=== PATIENT | female | born 1985 | race Caucasian/White ===

== ENCOUNTER 2025-05-05 10:35 | Day surgery (SDC) | payer OTHER, MEDICAID ==
[2025-05-05] MEDS ORDERED: hydrALAZINE 20 MG/ML VIAL SLOW IVP PRN (11:18)
[2025-05-05 11:21] VITALS: BMI 23.0
[2025-05-05 12:03] LABS: #Basophils 0.08 10x3/uL (0.0-0.2); #Eosinophils 0.18 10x3/uL (0.0-0.5); #Monocytes 0.97 10x3/uL (0.0-1.1); #Neutrophils 8.34 10x3/uL (1.5-8.4); %Basophils 0.7 % (0.0-2.0); %Eosinophils 1.6 % (0.0-6.0); %Lymphocytes 12.9 % (18.0-47.0); %Monocytes 8.6 % (0.0-10.0); %Neutrophils 73.8 % (40.0-75.0); Hematocrit 34.0 % (34.9-44.5); Hemoglobin 11.8 g/dL (12.0-15.5); Mean Corpuscular Hemoglobin 30.3 pg (27.0-33.0); Mean Corpuscular Volume 87.2 fL (81.6-98.3); Platelet Count 400 10x3/uL (150-450); Red Blood Cell (RBC) Count 3.90 10x6/uL (3.90-5.03); White Blood Cell (WBC) Count 11.30 10x3/uL (3.5-10.5)
[2025-05-05 12:47] LABS: ALT (SGPT) 12 U/L (Less than 34); AST (SGOT) 23 U/L (11-34); Albumin 3.3 g/dL (3.1-4.5); Alkaline Phosphatase 89 U/L (40-110); Anion Gap 12 mmol/L (10-20); BUN (Urea Nitrogen) 5 mg/dL (7.0-18.7); Bilirubin, Total 0.4 mg/dL (0.3-1.2); Calc. Creatinine Clearance 138 mL/min (70-130); Calcium 8.8 mg/dL (7.8-10.44); Carbon Dioxide 19 mmol/L (22-29); Chloride 106 mmol/L (98-107); Globulin 3.3 g/dL (2.4-3.5); Glucose 82 mg/dL (70-105); Potassium 3.1 mmol/L (3.5-5.1); Sodium 134 mmol/L (136-145)
[2025-05-05 14:19] LABS: Glucose, Urine (Dipstick) Normal (Negative); Leukocyte Negative (Negative); Protein, Urine (Dipstick) 15 mg/dl (Neg-Trace); Specific Gravity, Urine 1.015 (1.005-1.030)
[2025-05-05 14:29] LABS: Cocaine Metabolite Screen Negative (Negative); THC/Cannabinoid Screen Negative (Negative); Tricyclic Screen Negative (Negative)
[2025-05-05 14:42] LABS: Protein, Urine Random Quant 15.0 mg/dL (1-14)
[2025-05-05 15:10] LABS: Bacteria/HPF 3+ HPF (None Seen)
[2025-05-05 15:11] LABS: CAUTI Indications for Culture Pelvic or flank pain; RBC/HPF 0-3 HPF (0-3); WBC/HPF 0-3 HPF (0-3)
[2025-05-05 15:12] LABS: Urine Culture Reflex No No
[2025-05-05 16:01] LABS: HIV (1/2) Antibody/Antigen Non-Reactive (NonReactive); HIV 1/2 INDEX 0.10 S/CO (<1.00)
[2025-05-05 16:14] LABS: Hep B Surf Ag Non-Reactive S/CO (NonReactive)
[2025-05-05 16:36] LABS: Syphilis Antibody Index 0.06 S/CO (<1.00 Non-Reactive)
[2025-05-05 22:52] LABS: Hep A IgM AB NONREACTIVE (NonReactive); Hep B Core IgM Index 0.07 S/CO (0-0.79); Hep C IgG Ab NONREACTIVE S/CO (NonReactive); Hep C Index 0.14 S/CO (0-0.79)
[2025-05-05 22:59] LABS: Hep A IgM S/CO 0.28 S/CO (0-0.79)
== END 2025-05-05 14:29 | disposition short-term general hospital (02) ==
LOC: CSHLD/OP 10:35
PROVIDERS: ATTEND Obstetrics & Gynecology
DX: O99.891 Other specified diseases and conditions complicating pregnancy (principal); R45.851 Suicidal ideations; O09.529 Supervision of elderly multigravida, unspecified trimester; O99.340 Other mental disorders complicating pregnancy, unspecified trimester; F32.A Depression, unspecified; F90.9 Attention-deficit hyperactivity disorder, unspecified type; O99.310 Alcohol use complicating pregnancy, unspecified trimester; Z88.0 Allergy status to penicillin; Z3A.00 Weeks of gestation of pregnancy not specified
CPT/HCPCS: 36415; 76815; 80053; 80074; 80306; 80307; 81001; 82570; 84156; 84443; 85025; 86762; 86780; 86850; 86900; 86901; 87389; 93005; 93010; 99285

== ENCOUNTER 2025-05-05 14:46 | Emergency (ER) | payer MEDICAID, OTHER ==
[2025-05-05] MEDS ORDERED: Thiamine 100 MG TAB ONE (14:55)
[2025-05-05 15:42] LABS: Acetaminophen Less than 10 mcg/mL (Less than 10); Magnesium 1.6 mg/dL (1.6-2.6); Salicylate Less than 8.0 mg/dL (Less than 8.0)
== END 2025-05-05 21:33 ==
LOC: CSHERS 14:46 → EEVIPCON 14:46 → CSHERS 21:33
DX: O99.891 Other specified diseases and conditions complicating pregnancy (principal); R45.851 Suicidal ideations; O99.332 Smoking (tobacco) complicating pregnancy, second trimester; Z3A.26 26 weeks gestation of pregnancy
CPT/HCPCS: 36415; 80307; 83735; 93005; 96374; 96376; J2060